=== PATIENT | female | born 1970 | race Two or more races ===

== ENCOUNTER 2020-06-20 20:06 | Emergency (ER) | payer MEDICAID, OTHER ==
[~2020-06-20] VITALS: Ht 167.6 cm; Wt 90.7 kg
[2020-06-20 20:25] VITALS: BP 134/75
== END 2020-06-20 21:54 | disposition home or self-care (01) ==
LOC: ER 20:10
DX: S46.911A Strain of unspecified muscle, fascia and tendon at shoulder and upper arm level, right arm, initial encounter (principal); S63.91XA Sprain of unspecified part of right wrist and hand, initial encounter; W19.XXXA Unspecified fall, initial encounter; Y93.89 Activity, other specified; Y92.098 Other place in other non-institutional residence as the place of occurrence of the external cause; Y99.8 Other external cause status
CPT/HCPCS: 73060; 73130

== ENCOUNTER 2021-11-18 18:24 | Emergency (ER) | payer MEDICAID ==
[~2021-11-18] VITALS: Ht 167.6 cm; Wt 95.3 kg
[2021-11-18 21:14] VITALS: BP 158/89
[2021-11-18] MEDS ORDERED: KETOROLAC TROMETH 30 MG/ML 1ML VIAL IM ONE (21:15)
== END 2021-11-18 22:55 | disposition home or self-care (01) ==
LOC: ER 18:25
DX: M77.8 Other enthesopathies, not elsewhere classified (principal)
CPT/HCPCS: 71046; 96372; 99283; J1885

== ENCOUNTER 2022-05-22 20:57 | Emergency (ER) | payer MEDICAID ==
[~2022-05-22] VITALS: Ht 167.6 cm; Wt 91.0 kg
[2022-05-22 22:19] VITALS: BP 138/93
[2022-05-22 23:12] LABS: Urine Bacteria FEW /hpf (None Seen); Urine Blood TRACE /uL (Negative); Urine Mucus FEW (None Seen); Urine Specific Gravity 1.007 (1.001-1.035); Urine WBC 3 /hpf (0 - 5)
[2022-05-22 23:36] LABS: Basophils # (auto) 0.1 10 ^3/uL (0-0.2); Basophils % (auto) 0.5 % (0.0-2.0); Eosinophils # (auto) 0.2 10 ^3/uL (0-0.8); Eosinophils % (auto) 2.1 % (0.0-7.0); Hematocrit 42.3 % (36.0-46.0); Hemoglobin 13.5 g/dL (12.2-16.2); Lymphocytes # (auto) 2.4 10 ^3/uL (0.4-5.4); Lymphocytes % (auto) 22.1 % (10.0-50.0); Mean Corpuscular Hemoglobin 28.4 pg (28.0-32.0); Mean Corpuscular Volume 88.8 fL (80.0-100.0); Monocytes % (auto) 9.4 % (0.0-12.0); Neutrophils # (auto) 7.2 10 ^3/uL (1.6-8.6); Neutrophils % (auto) 65.9 % (37.0-80.0); Red Blood Cells 4.77 10^6/uL (4.0-5.20); Red Cell Distribution Width 14.6 % (11.8-14.3); White Blood Cell 10.9 10^3/uL (4.4-10.8)
[2022-05-22 23:46] LABS: Albumin 3.6 g/dL (3.4-5.0); BUN/Creatinine Ratio 13.8; Calcium 9.1 mg/dL (8.5-10.1); Potassium 3.6 mmol/L (3.5-5.1)
[2022-05-22 23:48] LABS: Bilirubin, Total 0.4 mg/dL (0.2-1.0); Total Protein 8.3 g/dL (6.4-8.2)
[2022-05-23] MEDS ORDERED: cefTRIAXone 1GM/50ML D5W 50 ML IV ONE (05:00)
== END 2022-05-23 05:51 | disposition home or self-care (01) ==
LOC: ER 20:57
DX: N39.0 Urinary tract infection, site not specified (principal)
CPT/HCPCS: 36415; 74176; 80053; 81001; 81025; 82150; 83690; 85025

== ENCOUNTER 2022-09-10 22:13 | Emergency (ER) | payer MEDICAID ==
[~2022-09-10] VITALS: Ht 167.6 cm; Wt 90.9 kg
[2022-09-11] MEDS ORDERED: PRED20TA2 PO (02:17)
[2022-09-11] MEDS ORDERED: ACET-1158 PO (02:17)
[2022-09-11] MEDS ORDERED: OSEL75CA5 PO (02:17)
[2022-09-11 02:20] VITALS: BP 122/74
== END 2022-09-11 02:24 | disposition home or self-care (01) ==
LOC: ER 22:15
DX: J10.1 Influenza due to other identified influenza virus with other respiratory manifestations (principal); Z90.89 Acquired absence of other organs; Z20.822 Contact with and (suspected) exposure to COVID-19
CPT/HCPCS: 36415; 71045; 87426; 87804

== ENCOUNTER 2022-10-21 17:40 | Emergency (ER) | payer MEDICAID ==
[~2022-10-21] VITALS: Ht 167.6 cm; Wt 95.6 kg
[~2022-10-21 17:40] MED LIST: ACET-1158 PO; OSEL75CA5 PO; PRED20TA2 PO
[2022-10-21 20:39] LABS: Basophils # (auto) 0 10 ^3/uL (0-0.2); Basophils % (auto) 0.6 % (0.0-2.0); Eosinophils # (auto) 0.3 10 ^3/uL (0-0.8); Eosinophils % (auto) 4.6 % (0.0-7.0); Hematocrit 36.9 % (36.0-46.0); Hemoglobin 12.3 g/dL (12.2-16.2); Lymphocytes # (auto) 1.9 10 ^3/uL (0.4-5.4); Lymphocytes % (auto) 28.3 % (10.0-50.0); Mean Corpuscular Hemoglobin 29.6 pg (28.0-32.0); Mean Corpuscular Hgb Conc. 33.4 g/dL (32.0-36.0); Mean Corpuscular Volume 88.7 fL (80.0-100.0); Monocytes # (auto) 0.7 10 ^3/uL (0-1.3); Monocytes % (auto) 9.8 % (0.0-12.0); Neutrophils # (auto) 3.8 10 ^3/uL (1.6-8.6); Neutrophils % (auto) 56.7 % (37.0-80.0); Red Blood Cells 4.17 10^6/uL (4.0-5.20); White Blood Cell 6.8 10^3/uL (4.4-10.8)
[2022-10-21 20:53] LABS: Calcium 8.8 mg/dL (8.5-10.1); Potassium 3.8 mmol/L (3.5-5.1)
[2022-10-21 20:57] LABS: BUN/Creatinine Ratio 24.6; Bilirubin, Total 0.4 mg/dL (0.2-1.0); Total Protein 7.1 g/dL (6.4-8.2)
[2022-10-21] MEDS ORDERED: cefTRIAXone 1GM/50ML D5W 50 ML IV ONE (21:30)
[2022-10-21] MEDS ORDERED: FUROSEMIDE 20 MG/2 ML VIAL IV ONE (21:30)
[2022-10-21] MEDS ORDERED: FURO20TA3 PO ×2 (23:40→23:41)
[2022-10-21] MEDS ORDERED: CEPH-322 PO (23:40)
[2022-10-21] MEDS ORDERED: CEPH250C28 PO (23:40)
[2022-10-21] MEDS ORDERED: TRAM50TA2 PO (23:49)
[2022-10-21 23:51] VITALS: BP 149/97
== END 2022-10-21 23:53 | disposition home or self-care (01) ==
LOC: ER 17:40
DX: R60.0 Localized edema (principal); L03.116 Cellulitis of left lower limb
CPT/HCPCS: 36415; 80053; 84484; 85025; 93005; 93971; 96365; 96375; 99285; J0696; J1940

== ENCOUNTER 2023-04-19 18:03 | Emergency (ER) | payer MEDICAID ==
[~2023-04-19] VITALS: Ht 165.1 cm; Wt 95.8 kg
[~2023-04-19 18:03] MED LIST changes: -ACET-1158 PO; +ACET500T58 PO; +CEPH250C PO; +TRAM50TA2 PO
[2023-04-19 19:11] LABS: Basophils # (auto) 0 10 ^3/uL (0-0.2); Basophils % (auto) 0.5 % (0.0-2.0); Eosinophils # (auto) 0.3 10 ^3/uL (0-0.8); Eosinophils % (auto) 3.7 % (0.0-7.0); Hematocrit 38.6 % (36.0-46.0); Hemoglobin 12.7 g/dL (12.2-16.2); Lymphocytes % (auto) 29.6 % (10.0-50.0); Mean Corpuscular Hemoglobin 29.2 pg (28.0-32.0); Mean Corpuscular Volume 88.5 fL (80.0-100.0); Monocytes # (auto) 0.5 10 ^3/uL (0-1.3); Monocytes % (auto) 7.3 % (0.0-12.0); Neutrophils % (auto) 58.9 % (37.0-80.0); Red Blood Cells 4.36 10^6/uL (4.0-5.20); Red Cell Distribution Width 14.9 % (11.8-14.3); White Blood Cell 6.8 10^3/uL (4.4-10.8)
[2023-04-19 19:30] LABS: INR 0.98 (0.9-1.15); Partial Thromboplastin Time 27.3 SEC (24.5-34.5)
[2023-04-19 20:01] LABS: Albumin 3.4 g/dL (3.4-5.0); Calcium 8.8 mg/dL (8.5-10.1); Magnesium 2.3 mg/dL (1.6-2.6); Potassium 4.1 mmol/L (3.5-5.1)
[2023-04-19 20:05] LABS: BUN/Creatinine Ratio 15.4 (10.0-20.0); Bilirubin, Total 0.3 mg/dL (0.2-1.0); Total Protein 6.7 g/dL (6.4-8.2)
[2023-04-19] MEDS ORDERED: FUROSEMIDE 20 MG/2 ML VIAL IV ONE (20:15)
[2023-04-19] MEDS ORDERED: KETOROLAC TROMETH 30 MG/ML 1ML VIAL IV ONE (22:15)
[2023-04-19 23:00] VITALS: BP 134/75
[2023-04-19] MEDS ORDERED: FURO1TAB31 PO (23:22)
== END 2023-04-19 23:33 | disposition home or self-care (01) ==
LOC: ER 18:03
DX: R60.0 Localized edema (principal); R06.02 Shortness of breath; R42 Dizziness and giddiness; Z87.440 Personal history of urinary (tract) infections; Z79.899 Other long term (current) drug therapy
CPT/HCPCS: 36415; 70450; 71045; 80053; 82962; 83735; 83880; 84484; 85025; 85610; 85730; 93005; 96374; 96375; 99285; J1885; J1940